=== PATIENT | male | born 1980 | race Hispanic/Latino ===

== ENCOUNTER 2018-04-14 10:29 | Inpatient (IN) | payer SELFPAY ==
[2018-04-14 13:04] LABS: Absolute Lymphocytes (CBC) 1.1 K/uL (0.7-4.9); Absolute Neutrophil 8.9 K/uL (1.8-8.0); Basophils % 0.4 % (0-1.3); Eosinophils % 0.7 % (0-4.4); Lymphocytes % 9.7 % (15.3-44.8); MPV 8.5 fL (7.6-11.3); Monocytes % 9.2 % (3.3-12.3); RBC Red Blood Cell Count 5.09 M/uL (4.33-5.43)
[2018-04-14 13:07] LABS: Protime INR 1.1
[2018-04-14] MEDS ORDERED: NA CHLORIDE 0.9% 1,000 ML ONE (13:09)
--- NOTE | 2018-04-14 13:11 | RAD REPORT ---
EXAM DESCRIPTION: US - Extremity Venous Uni Ltd - 04/14/2018 1:00 pm CLINICAL HISTORY: SWELLING Leg swelling and edema. COMPARISON: No comparisons FINDINGS: Right lower extremity venous system was interrogated with Doppler technique. Normal flow, compressibility and augmentation was noted. There is no DVT present. IMPRESSION: No evidence of right lower extremity deep venous thrombosis.
[2018-04-14 13:19] LABS: Albumin 3.8 g/dL (3.4-5.0); Bilirubin Direct 0.1 mg/dL (0-0.2); Bilirubin Total 0.4 mg/dL (0.2-1.0); Magnesium 2.3 mg/dL (1.8-2.4); Potassium 3.2 mmol/L (3.5-5.1); Protein, Total 8.8 g/dL (6.4-8.2)
--- NOTE | 2018-04-14 13:36 | RAD REPORT ---
EXAM DESCRIPTION: RAD - Knee Right 3 View - 04/14/2018 1:30 pm CLINICAL HISTORY: SWELLING COMPARISON: No comparisons FINDINGS: Mild edema is seen surrounding the right knee. No fracture or dislocation seen. No aggress tyra marrow pattern. Trace suprapatellar joint fluid is present.
--- NOTE | 2018-04-14 14:40 | ER ---
Nurse's Notes [facility] Name: Tito Coyne Age: 37 yrs Sex: Male : 1980 Arrival Date: 04/14/2018 Time: 10:31 Bed 13 Private MD: None, None Diagnosis: Cellulitis and acute lymphangitis of other parts of limb-Right leg Presentation: 04/14 10:48 Presenting complaint: Patient states: "I woke up the other morning and I had a little aj1 pimple on my knee. I pulled a hair out of it and squeezed the pus out and the next morning it looked worse, this was about 3 days ago." Redness and swelling noted to right knee. Transition of care: patient was not received from another setting of care. Onset of symptoms was April 11, 2018. Risk Assessment: Do you want to hurt yourself or someone else? Patient reports no desire to harm self or others. Initial Sepsis Screen: Does the patient meet any 2 criteria? HR > 90 bpm. No. Patient's initial sepsis screen is negative. Does the patient have a suspected source of infection? Yes: Skin breakdown/wound. Care prior to arrival: None. 10:48 Method Of Arrival: Ambulatory aj1 10:48 Acuity: NESS 3 aj1 Triage Assessment: 10:50 General: Appears in no apparent distress. uncomfortable, Behavior is calm, cooperative, aj1 appropriate for age. Pain: Complains of pain in right knee Pain currently is 7 out of 10 on a pain scale. Neuro: Level of Consciousness is awake, alert, obeys commands. Cardiovascular: Patient's skin is warm and dry. Respiratory: Airway is patent Respiratory effort is even, unlabored, Respiratory pattern is regular, symmetrical. Derm: Abscess located on right knee is with a large area of erythema surrounding abscess is hot to touch, is red, is raised. Historical: - Allergies: 10:50 Codeine; aj1 - Home Meds: 10:50 None [Active]; aj1 - PMHx: 10:50 None; aj1 - PSHx: 10:50 None; aj1 - Immunization history:: Flu vaccine is not up to date. - Social history:: Smoking status: Patient uses tobacco products, smokes one-half pack cigarettes per day. - Ebola Screening: : Patient denies travel to an Ebola-affected area in the 21 days before illness onset. Screenin:11 Abuse screen: Denies threats or abuse. Nutritional screening: No deficits noted. rb1 Tuberculosis screening: No symptoms or risk factors identified. Fall Risk None identified. Assessment: 12:11 General: Appears in no apparent distress. comfortable, Behavior is calm, cooperative, rb1 Reports chills for fever for 1-2 days. Pain: Complains of pain in right knee Pain currently is 7 out of 10 on a pain scale. Pain began 1 day ago. Neuro: Level of Consciousness is awake, alert, obeys commands, Oriented to person, place, time, situation. Cardiovascular: Capillary refill < 3 seconds is brisk in bilateral toes. Respiratory: Airway is patent Respiratory effort is even, unlabored, Respiratory pattern is regular, symmetrical. GI: No signs and/or symptoms were reported involving the gastrointestinal system. : No signs and/or symptoms were reported regarding the genitourinary system. Derm: Skin is red, Redness and swelling noted to right knee and lower leg. Musculoskeletal: Range of motion: intact in all extremities, Swelling present in right leg and right knee. 13:00 Reassessment: Patient appears in no apparent distress at this time. No changes from rb1 previously documented assessment. 14:00 Reassessment: Patient appears in no apparent distress at this time. Patient and/or rb1 family updated on plan of care and expected duration. Pain level reassessed. Patient is alert, oriented x 3, equal unlabored respirations, skin warm/dry/pink. 15:00 Reassessment: Patient appears in no apparent distress at this time. No changes from rb1 previously documented assessment. 16:00 Reassessment: Patient appears in no apparent distress at this time. Patient and/or rb1 family updated on plan of care and expected duration. Pain level reassessed. Patient is alert, oriented x 3, equal unlabored respirations, skin warm/dry/pink. 16:10 Reassessment: Gave report to STIVEN Valverde. Information from the SBAR was given. All rb1 questions asked and answered. Vital Signs: 10:50 BP 137 / 89; Pulse 98; Resp 18; Temp 98.2; Pulse Ox 100% on R/A; Weight 88.45 kg (R); aj1 Height 6 ft. 0 in. (182.88 cm) (R); Pain 7/10; 11:50 BP 153 / 93; Pulse 86; Resp 16; Pulse Ox 100% ; rb1 12:49 BP 151 / 95; Pulse 85; Resp 15; Pulse Ox 98% on R/A; Pain 5/10; rb1 13:49 BP 146 / 98; Pulse 86; Resp 18; Pulse Ox 99% on R/A; rb1 14:40 BP 148 / 89; Pulse 88; Resp 17; Pulse Ox 99% on R/A; rb1 15:35 BP 153 / 96; Pulse 84; Resp 16; Pulse Ox 100% on R/A; Pain 4/10; rb1 16:17 BP 153 / 96; Pulse 86; Resp 17; Pulse Ox 100% on R/A; rb1 10:50 Body Mass Index 26.45 (88.45 kg, 182.88 cm) aj1 ED Course: 10:31 Patient arrived in ED. sb2 10:32 None, None is Private Physician. sb2 10:50 Triage completed. aj1 10:50 Arm band placed on Patient placed in waiting room, Patient notified of wait time. aj1 12:08 Rashad Toledo PA is PHCP. cp 12:08 Joel Cruz MD is Attending Physician. cp 12:11 Patient has correct armband on for positive identification. Placed in gown. Bed in low rb1 position. Call light in reach. Side rails up X 1. Pulse ox on. NIBP on. 12:14 Neyda Saab, RN is Primary Nurse. rb1 12:45 Inserted saline lock: 22 gauge in right antecubital area, using aseptic technique. rb1 Blood collected. 13:00 US Extremity Venous Unilateral Ltd In Process Unspecified. EDMS 13:03 Patient moved back from ultrasound. crystal 13:30 XRAY Knee RIGHT 3 view In Process Unspecified. EDMS 14:38 Rosa Meredith MD is Hospitalizing Provider. cp 16:25 No provider procedures requiring assistance completed. Patient admitted, IV remains in rb1 place. Administered Medications: 13:20 Drug: NS 0.9% 1000 ml Route: IV; Rate: 1 bolus; Site: right antecubital; rb1 14:44 Follow up: IV Status: Completed infusion rb1 16:17 Drug: Zosyn 3.375 grams Route: IVPB; Infused Over: 60 mins; Site: right antecubital; rb1 16:25 Follow up: Response: No adverse reaction; IV Status: Infusion continued upon admission rb1 19:45 Not Given (Taken to the floor when admitted): vancoMYCIN 1 grams IVPB once over 2 hrs rb1 Outcome: 14:40 Decision to Hospitalize by Provider. cp 16:25 Admitted to Tele accompanied by tech, via wheelchair, room 423, with chart, Report rb1 called to STIVEN Valverde 16:25 Condition: stable 16:25 Instructed on the need for admit. 16:43 Patient left the ED. hb Signatures: Dispatcher [employer] EDAmada Guadalupe RN RN aj1 Rashad Toledo PA PA cp Neyda Saab RN RN rb1 Marquis Giraldo jd, Heather, RN RN Mimi Roche sb2
--- NOTE | 2018-04-14 14:40 | EDPHYS ---
Physician Documentation [facility] Name: Tito Coyne Age: 37 yrs Sex: Male : 1980 Arrival Date: 04/14/2018 Time: 10:31 Bed 13 Private MD: None, None ED Physician Joel Cruz HPI: 04/14 12:25 This 37 yrs old Male presents to ER via Ambulatory with complaints of Abscess. cp 12:25 The patient presents with an abscess of the right knee, the patient presents with a cp swollen area of the right leg. 12:25 Description: erythematous, swollen, tense. Onset: The symptoms/episode began/occurred 3 cp day(s) ago. Associated signs and symptoms: Pertinent positives: erythema, fever, swelling, Pertinent negatives: discharge, drainage, vomiting. Severity of symptoms: in the emergency department the symptoms are unchanged, despite home interventions. Historical: - Allergies: 10:50 Codeine; aj1 - Home Meds: 10:50 None [Active]; aj1 - PMHx: 10:50 None; aj1 - PSHx: 10:50 None; aj1 - Immunization history:: Flu vaccine is not up to date. - Social history:: Smoking status: Patient uses tobacco products, smokes one-half pack cigarettes per day. - Ebola Screening: : Patient denies travel to an Ebola-affected area in the 21 days before illness onset. ROS: 12:30 Constitutional: Negative for body aches, chills, fever, poor PO intake. cp 12:30 Eyes: Negative for injury, pain, redness, and discharge. cp 12:30 ENT: Negative for drainage from ear(s), ear pain, sore throat, difficulty swallowing, difficulty handling secretions. 12:30 Cardiovascular: Negative for chest pain, palpitations. 12:30 Respiratory: Negative for cough, shortness of breath, wheezing. 12:30 Abdomen/GI: Negative for abdominal pain, nausea, vomiting, and diarrhea, constipation, black/tarry stool, rectal bleeding. 12:30 Back: Negative for pain at rest, pain with movement. 12:30 : Negative for urinary symptoms. 12:30 Skin: Positive for abscess, cellulitis, of the right leg and right knee, Negative for rash. 12:30 Neuro: Negative for altered mental status, headache, syncope, near syncope, weakness. 12:30 All other systems are negative. Exam: 12:35 Constitutional: The patient appears in no acute distress, alert, awake, cp non-diaphoretic, non-toxic, well developed, well nourished. 12:35 Head/Face: Normocephalic, atraumatic. cp 12:35 Eyes: Periorbital structures: appear normal, Pupils: equal, round, and reactive to cp light and accomodation, Extraocular movements: intact throughout, Conjunctiva: normal, no exudate, no injection, Sclera: no appreciated abnormality, Lids and lashes: appear normal, bilaterally. 12:35 ENT: External ear(s): are unremarkable, Ear canal(s): are normal, clear, TM's: are normal, Nose: is normal, Mouth: Lips: moist, Oral mucosa: pink and intact, moist, Posterior pharynx: is normal, airway is patent, no erythema, no exudate, Voice: is normal. 12:35 Neck: ROM/movement: is normal, is supple, without pain, no range of motions limitations, no meningismus, no nuchal rigidity. 12:35 Chest/axilla: Inspection: normal, Palpation: is normal, no crepitus, no tenderness. 12:35 Cardiovascular: Rate: normal, Rhythm: regular. 12:35 Respiratory: the patient does not display signs of respiratory distress, Respirations: cp normal, no use of accessory muscles, no retractions, no splinting, no tachypnea, labored breathing, is not present, Breath sounds: are clear throughout, no decreased breath sounds, no stridor, no wheezing. 12:35 Abdomen/GI: Inspection: abdomen appears normal, Bowel sounds: active, all quadrants, Palpation: abdomen is soft and non-tender, in all quadrants, rebound tenderness, is not appreciated, voluntary guarding, is not appreciated, involuntary guarding, is not appreciated. 12:35 Back: pain, is absent, ROM is normal. 12:35 Skin: abscess, that is small, of the right knee, cellulitis, that is moderate, irregular, on the right leg. 12:35 Neuro: Orientation: to person, place \T\ time. Mentation: is normal, Cerebellar function: is grossly normal, Motor: moves all fours, strength is normal, Sensation: is normal. Vital Signs: 10:50 BP 137 / 89; Pulse 98; Resp 18; Temp 98.2; Pulse Ox 100% on R/A; Weight 88.45 kg (R); aj1 Height 6 ft. 0 in. (182.88 cm) (R); Pain 7/10; 11:50 BP 153 / 93; Pulse 86; Resp 16; Pulse Ox 100% ; rb1 12:49 BP 151 / 95; Pulse 85; Resp 15; Pulse Ox 98% on R/A; Pain 5/10; rb1 13:49 BP 146 / 98; Pulse 86; Resp 18; Pulse Ox 99% on R/A; rb1 14:40 BP 148 / 89; Pulse 88; Resp 17; Pulse Ox 99% on R/A; rb1 15:35 BP 153 / 96; Pulse 84; Resp 16; Pulse Ox 100% on R/A; Pain 4/10; rb1 16:17 BP 153 / 96; Pulse 86; Resp 17; Pulse Ox 100% on R/A; rb1 10:50 Body Mass Index 26.45 (88.45 kg, 182.88 cm) aj1 MDM: 12:08 Patient medically screened. cp 12:40 Differential diagnosis: abscess, cellulitis, insect bite, DVT, septic joint, bursitis. cp 14:05 Data reviewed: vital signs, nurses notes, lab test result(s), radiologic studies, cp ultrasound, and as a result, I will admit patient. 14:05 Counseling: I had a detailed discussion with the patient and/or guardian regarding: the cp historical points, exam findings, and any diagnostic results supporting the discharge/admit diagnosis, lab results, radiology results, the need for further work-up and treatment in the hospital. 14:06 Physician consultation: Rosa Meredith MD was called at 14:07, left message on [email or web address].cp 04/14 12:28 Order name: Blood Culture Adult (2) cp 04/14 12:28 Order name: Procalcitonin; Complete Time: 13:59 cp 04/14 12:28 Order name: Lactate; Complete Time: 13:59 cp 04/14 12:28 Order name: CBC with Diff; Complete Time: 13:59 cp 04/14 14:38 Interpretation: Normal except: WBC 11.2; MCV 86.5; GINA% 80.0; LYM% 9.7; NEUT A 8.9. cp 04/14 12:28 Order name: BMP; Complete Time: 13:59 cp 04/14 14:00 Interpretation: Normal except: NA 135; K 3.2; GLUC 70; BUN 5; GFR 83. cp 04/14 12:28 Order name: PT-INR; Complete Time: 13:59 cp 04/14 12:28 Order name: XRAY Knee RIGHT 3 view; Complete Time: 13:59 cp 04/14 12:28 Order name: US Extremity Venous Unilateral Ltd; Complete Time: 13:59 cp 04/14 14:01 Interpretation: Report reviewed. cp 04/14 12:28 Order name: Ptt, Activated; Complete Time: 13:59 cp 04/14 12:28 Order name: LFT's; Complete Time: 13:59 cp 04/14 12:28 Order name: Magnesium; Complete Time: 13:59 cp 04/14 12:28 Order name: Wound Culture cp Administered Medications: 13:20 Drug: NS 0.9% 1000 ml Route: IV; Rate: 1 bolus; Site: right antecubital; rb1 14:44 Follow up: IV Status: Completed infusion rb1 16:17 Drug: Zosyn 3.375 grams Route: IVPB; Infused Over: 60 mins; Site: right antecubital; rb1 16:25 Follow up: Response: No adverse reaction; IV Status: Infusion continued upon admission rb1 19:45 Not Given (Taken to the floor when admitted): vancoMYCIN 1 grams IVPB once over 2 hrs rb1 Disposition: 04/14/18 14:40 Hospitalization ordered by Rosa Meredith for Inpatient Admission. Preliminary diagnosis is Cellulitis and acute lymphangitis of other parts of limb - Right leg. - Bed requested for Telemetry/MedSurg (Inpatient). - Status is Inpatient Admission. hb - Condition is Stable. - Problem is new. - Symptoms are unchanged. UTI on Admission? No Addendum: 04/25/2018 07:29 Co-signature as Attending Physician, Joel Cruz MD I agree with the assessment and k dr plan of care. Signatures: Dispatcher [employer] EDMS Amada Monroy RN RN aj1 Darcy Dao RN RN dw Joel Cruz MD MD kdr Page, Corey, PA PA cp Neyda Saab RN RN rb1 Michelle Jackson RN RN hb Corrections: (The following items were deleted from the chart) 04/14 15:06 14:40 Hospitalization Ordered by Rosa Meredith MD for Inpatient Admission. Preliminary dw diagnosis is Cellulitis and acute lymphangitis of other parts of limb - Right leg. Bed requested for Telemetry/MedSurg (Inpatient). Status is Inpatient Admission. Condition is Stable. Problem is new. Symptoms are unchanged. UTI on Admission? No. cp 16:43 15:06 04/14/2018 14:40 Hospitalization Ordered by Rosa Meredith MD for Inpatient hb Admission. Preliminary diagnosis is Cellulitis and acute lymphangitis of other parts of limb - Right leg. Bed requested for Telemetry/MedSurg (Inpatient). Status is Inpatient Admission. Condition is Stable. Problem is new. Symptoms are unchanged. UTI on Admission? No. dw
[2018-04-14] MEDS ORDERED: PIPER/TAZO/NS 3.375gm 3.375 GM/100 ML BAG IV ONE (15:15)
[2018-04-14] MEDS ORDERED: VANCOMYCIN 1.5 GM in NA CHLORIDE 0.9% 500 ML IVPB ONE (16:00)
[2018-04-14] MEDS ORDERED: PIPER/TAZO/NS 3.375gm 3.375 GM/100 ML BAG ONE (16:13)
[2018-04-14] MEDS: NA CHLORIDE 0.9% 1,000 ML IV SCH (17:28)
[2018-04-14] MEDS ORDERED: ACETAMINOPHEN 500 MG TAB PO PRN (17:28)
[2018-04-14] MEDS ORDERED: ONDANSETRON 4 MG/2 ML VIAL IV PRN (17:28)
[2018-04-14] MEDS ORDERED: POTASSIUM CL SA 10 MEQ TAB PO ONE (17:29)
[2018-04-14 17:53] VITALS: BMI 26.3
--- NOTE | 2018-04-14 18:17 | P.HP ---
Certification for Inpatient Patient admitted to: Inpatient With expected LOS: >2 Midnights Patient will require the following post-hospital care: None Practitioner: I am a practitioner with admitting privileges, knowledge of patient current condition, hospital course, and medical plan of care. Services: Services provided to patient in accordance with Admission requirements found in Title 42 Section 412.3 of the Code of Federal Regulations Patient History Date of Service: 04/14/18 Primary Care Provider: None Reason for admission: Right Knee Cellulitis possible Abscess History of Present Illness: 37 y/o M who recently was realized from snf on mar 25 2018 presenting to the ED with Knee swelling and Right Lower Leg Cellulitis. Pt noted that this started about 3 days ago as a boil and now has got progressively worse. Pt states he also noted similar episode on the elbow that started today. Pt states he has had similar episode in the armpit region in the past but did not get anything done. Denies any trauma to the area. Positive for subjective fever, Chills and pain. Able to Ambulate and put weight on the affected extremity. + for cig smoking and THC. Occasional Alcohol and negative for IV drugs. In the ER pt was found to have RLE cellulitis and Right knee Swelling with Possible Abscess vs septic arthritis. Pt was thus admitted to the hospital for further workup and IV abx given the extent of cellulites and High risk for Septic Arthritis. Allergies Codeine Allergy (Uncoded 04/11/15 16:18) Unknown Home Medications: NK [No Home Meds] 04/14/18 - Past Medical/Surgical History Has patient received pneumonia vaccine in the past: No Diabetic: No -: Recurrent boils Past Surgical History: Reviewed- Non-Contributory - Family History Family History: Reviewed- Non-Contributory - Social History Smoking Status: Current some day smoker Counseled patient to stop smoking for: more than 10 minutes Smoking therapy provided: Yes Alcohol use: Yes CD- Drugs: Yes Caffeine use: No Place of Residence: Home Review of Systems 10-point ROS is otherwise unremarkable Physical Examination - Vital Signs Temperature: 98.2 F Blood Pressure: 153/96 Pulse: 86 Respirations: 17 - Physical Exam General: Alert, In no apparent distress HEENT: Atraumatic, PERRLA, Mucous membr. moist/pink, EOMI, Sclerae nonicteric Neck: Supple, 2+ carotid pulse no bruit, No LAD, Without JVD or thyroid abnormality Respiratory: Clear to auscultation bilaterally, Normal air movement Cardiovascular: Regular rate/rhythm, Normal S1 S2 Gastrointestinal: Normal bowel sounds, No tenderness Musculoskeletal: Erythema, Tenderness, Warmth, Other (Extensive right Lower Ext Swelling noted on the back. Right Knee Swelling with Boil at the 10'o clock location. No Purulent Discharge. Tenderness + and Swelling noted. FROM on the Right leg noted. ) Integumentary: Tenderness/swelling, Erythema, Warmth Neurological: Normal gait, Normal speech, Normal strength at 5/5 x4 extr, Normal tone, Normal affect Lymphatics: No axilla or inguinal lymphadenopathy - Studies Laboratory Data (last 24 hrs) 04/14/18 12:45: PT 13.0 H, INR 1.10, APTT 33.3 04/14/18 12:45: Sodium 135 L, Potassium 3.2 L, BUN 5 L, Creatinine 1.00, Glucose 70 L, Magnesium 2.3, Total Bilirubin 0.4, AST 13 L, ALT 25, Alkaline Phosphatase 114 04/14/18 12:45: WBC 11.2 H, Hgb 15.1, Hct 44.0, Plt Count 311 Assessment and Plan - Problems (Diagnosis) (1) Cellulitis of right knee Current Visit: Yes Status: Acute Plan: Right Knee cellulitis with possible boil vs Abscess vs septic Joint -Pt with H/o Boils in the past -IV Vanc and zosyn -Wound culture and Blood Culture -Xray with effusion in suprapatellar region -ortho Consulted. Reccs awaiting -MRI pending, CRP pending. -Denies Trauma (2) Cellulitis of right leg Current Visit: Yes Status: Acute Plan: See # 1 (3) Tobacco abuse Current Visit: Yes Status: Chronic (4) Marijuana use Current Visit: Yes Status: Chronic Discharge Plan: Other Plan to discharge in: Greater than 2 days - Advance Directives Does patient have a Living Will: No Does patient have a Durable POA for Healthcare: No - Code Status/Comfort Care Code Status Assessed: Yes Critical Care: No
--- NOTE | 2018-04-14 19:31 | RAD REPORT ---
EXAM DESCRIPTION: Sindhu Rocha Cont04/14/2018 7:19 pm CLINICAL HISTORY: Right knee pain and swelling COMPARISON: April 14, 2018 x-ray TECHNIQUE: Axial, sagittal and coronal magnetic resonance imaging of the right knee was obtained. FINDINGS: A 37 millimeter fluid collection is present within the subcutaneous tissues lateral to pat xu. A medial/lateral meniscal tear is not seen The ACL and PCL are intact. The medial and the lateral collateral ligaments appear normal. The visualized patellar and quadriceps tendons are unremarkable. The patellar facet cartilage appears normal. The patellar retinacula are intact. IMPRESSION: 37 millimeter fluid collection within the subcutaneous tissues of the anterolateral righ t knee suspicious for an abscess
--- NOTE | 2018-04-14 19:32 | RAD REPORT ---
EXAM DESCRIPTION: RAD - Elbow Right 2 View - 04/14/2018 7:20 pm CLINICAL HISTORY: elbow pain FINDINGS: No fracture or dislocation is seen. No bone or joint abnormality is displayed is
[2018-04-15] MEDS: PIPER/TAZO/NS 3.375gm 3.375 GM/100 ML BAG IV SCH ×3 (01:06→18:14)
[2018-04-15] MEDS ORDERED: POTASSIUM CL SA 10 MEQ TAB PO ONE ×2 (01:46→09:00)
[2018-04-15] MEDS: NA CHLORIDE 0.9% 1,000 ML IV SCH ×3 (03:28→20:49)
[2018-04-15 06:07] LABS: Absolute Monocytes 1.1 K/uL (0.1-1.3); Basophils % 0.8 % (0-1.3); Lymphocytes % 11.1 % (15.3-44.8); MPV 8.4 fL (7.6-11.3); Monocytes % 11.9 % (3.3-12.3); RBC Red Blood Cell Count 4.44 M/uL (4.33-5.43)
[2018-04-15 06:41] LABS: ALT/SGPT 23 U/L (12-78); AST/SGOT 15 U/L (15-37); Alkaline Phosphatase 88 U/L (45-117); BUN Blood Urea Nitrogen 5 mg/dL (7-18); Bicarbonate 25 mmol/L (21-32); Bilirubin Total 0.5 mg/dL (0.2-1.0); Glucose Level 83 mg/dL (74-106); Phosphorus 3.2 mg/dL (2.5-4.9); Potassium 3.7 mmol/L (3.5-5.1); Sodium Level 138 mmol/L (136-145)
[2018-04-15] MEDS: VANCOMYCIN 1.5 GM in NA CHLORIDE 0.9% 500 ML IVPB SCH ×2 (09:38→20:48)
[2018-04-15] MEDS ORDERED: LIDOCAINE 2% MPF 5 ML VIAL ONE (12:57)
[2018-04-15] MEDS ORDERED: PROPOFOL 200 MG/20 ML VIAL IV ONE (12:57)
[2018-04-15] MEDS ORDERED: FENTANYL CITR 100 MCG/2 ML ONE (12:57)
[2018-04-15] MEDS ORDERED: MIDAZOLAM HCL 2 MG/2 ML INJ ONE (12:57)
--- NOTE | 2018-04-15 13:24 | P.BOP ---
Preoperative diagnosis: right knee abscess Postoperative diagnosis: same Primary procedure: Incision and drainage of complex right knee abscess [id number] Estimated blood loss: <10cc Specimen: pus Findings: abscess with devitalized tissue Anesthesia: General Complications: None Drain(s): Other (wet to dry) Transferred to: Recovery Room Condition: Good
[2018-04-15] MEDS ORDERED: KETOROLAC 30 MG/ML INJ ONE (13:30)
[2018-04-15] MEDS ORDERED: MORPHINE 4 MG/ML SYR ONE (14:01)
[2018-04-15] MEDS ORDERED: HYDROCODONE/APAP 7.5/325 MG TAB PO PRN (14:09)
[2018-04-15] MEDS ORDERED: NA CHLORIDE 0.9% 1,000 ML ONE (14:15)
--- NOTE | 2018-04-15 16:40 | P.PN ---
Subjective Date of Service: 04/15/18 Primary Care Provider: None Chief Complaint: Right Knee Cellulitis possible Abscess Patient seen and examined at bedside with RN. Chart reviewed. Case discussed with general surgery. Currently patient is NPO. Will go to OR today for knee abscess drainage. Review of Systems 10-point ROS is otherwise unremarkable Physical Examination - Vital Signs Temperature: 98.5 F Blood Pressure: 122/75 Pulse: 75 Respirations: 16 Pulse Ox (%): 99 - Physical Exam General: Alert, In no apparent distress HEENT: Atraumatic, PERRLA, EOMI Neck: Supple, JVD not distended Respiratory: Clear to auscultation bilaterally, Normal air movement Cardiovascular: Regular rate/rhythm, Normal S1 S2 Gastrointestinal: Normal bowel sounds, No tenderness Musculoskeletal: Erythema, Tenderness, Warmth Integumentary: No rashes Neurological: Normal speech, Normal tone, Normal affect Lymphatics: No axilla or inguinal lymphadenopathy - Studies Medications List Reviewed: Yes Assessment And Plan - Current Problems (Diagnosis) (1) Cellulitis of right knee Onset Date: 04/15/18 Current Visit: Yes Status: Acute Plan: Right Knee cellulitis with possible boil vs Abscess vs septic Joint -Pt with H/o Boils in the past -IV Vanc and zosyn -Wound culture and Blood Culture pending -Xray with effusion in suprapatellar region -MRI with Knee abscess -General Surgery Consulted. -Plans for I&D (2) Cellulitis of right leg Onset Date: 04/15/18 Current Visit: Yes Status: Acute Plan: See # 1 (3) Tobacco abuse Onset Date: 04/15/18 Current Visit: Yes Status: Chronic (4) Marijuana use Onset Date: 04/15/18 Current Visit: Yes Status: Chronic Discharge Plan: Home Plan to discharge in: 48 Hours - Code Status/Comfort Care Code Status Assessed: Yes Critical Care: No
--- NOTE | 2018-04-15 17:34 | CON ---
Date of Consultation: 04/15/2018 Reason For Service: Right knee abscess. History Of Present Illness: This is a case of a 37-year-old male, admitted to the hospital for right knee and leg cellulitis. He does not remember exactly what happened. He stated it was getting wors e, and he decided to come to the ER, where he was admitted by the hospitalist. He denies any trauma, any recent traveling out of the country. The patient was admitted to the hospital and Orthopedics a nd General Surgery consulted. Since they ruled out any joint abscess, then they call me to take care of the cellulitis around the area and the abscess outside the joint. Review of Systems: Ten points otherwise unremarkable. Medical History: None. Allergies: CODEINE. Social History: He does not smoke. He drinks 6 beers in a week. Family History: Noncontributory. Physical Examination: General: The patient is awake and alert. HEENT: Pupils are equal and reactive, anicteric. Neck: Supple. Chest: Clear. Abdomen: Soft and depressible. No guarding or rebound. Rectal/Pelvic: Deferred. Extremities: Over the right knee and leg area, patient has area of cellulitis about 20 x 15 cm with an area of abscess about 10 x 10 cm. Fluctuance is present. Good peripheral pulses dorsalis pedis, posterior tibialis, and popliteal bilaterally. Neurologic: Cranial nerves 2 through 12 grossly within normal limits. Diagnostic Data: Knee MRI interpreted by Dr. Becerra as a fluid collection in the subcutaneous tissu e of the anterolateral right knee suspicious for abscess. Venous Doppler shows no evidence of DVT. Assessment: This is a 37-year-old patient with right knee abscess. Benefits, alternatives, and risk s of debridement and incision and drainage fully explained to the patient, which included but are not limited to infection, bleeding, damage to adjacent structures, anesthesia complication, UT, and even . He also understands this may not relieve his symptoms. He might need more than one surgical intervention. He will require wound care. JANE/RADHA Voice ID: [id number] Report ID: [id number]
[2018-04-16] MEDS: PIPER/TAZO/NS 3.375gm 3.375 GM/100 ML BAG IV SCH ×3 (00:07→18:25)
--- NOTE | 2018-04-16 00:31 | OP ---
Date of Procedure: 04/15/2018 Surgeon: Abram Kumar MD Preoperative Diagnosis: Right knee abscess. Postoperative Diagnosis: Right knee abscess. Procedure: Incision and drainage of complex right knee abscess, about 10 x 7 x 1 cm. Anesthesia: General plus local. Packing: Wet-to-dry normal saline. Indications: This is the case of a 37-year-old patient who comes to us with a right knee cellulitis and abscess and devitalized tissue. I recommended incision and drainage with debridement of the righ t knee abscess with benefits, alternatives, and risks including but not limited to infection, bleedin g, damage to adjacent structures, anesthesia complication, nonhealing of the wound, VA, and even deat h. He also understands this may not relieve any symptoms and he might need more than one surgical in tervention. He understood, signed a consent. Description Of Procedure: The patient was brought to the operating room, placed in supine position. Anesthesia was done without any complication. Right knee was prepped and draped in a sterile fashio n. Marcaine 0.5% was injected for local anesthetic, followed by sharp incision of the skin, and we n oticed a purulent discharge cavity when we opened it and removed the devitalized tissue. This is abo ut 10 x 7 x 1 cm. All the devitalized tissue was removed. Loculations were explored and opened. Ir rigation was done. Culture was done. Hemostasis obtained. Local anesthetic was applied and area wa s packed with wet-to-dry dressing. The patient tolerated the procedure well. The patient was sent to recover y in stable condition. JANE/RADHA Voice ID: [id number] Report ID: [id number]
[2018-04-16 05:16] LABS: Absolute Lymphocytes (CBC) 1.6 K/uL (0.7-4.9); Absolute Monocytes 0.8 K/uL (0.1-1.3); Absolute Neutrophil 4.5 K/uL (1.8-8.0); Basophils % 1.2 % (0-1.3); Eosinophils % 3.2 % (0-4.4); Hematocrit 37.8 % (39.6-49.0); Lymphocytes % 21.9 % (15.3-44.8); MPV 8.2 fL (7.6-11.3); Monocytes % 10.9 % (3.3-12.3); RBC Red Blood Cell Count 4.38 M/uL (4.33-5.43)
[2018-04-16 05:35] LABS: Albumin 2.7 g/dL (3.4-5.0); Bilirubin Total 0.4 mg/dL (0.2-1.0); Potassium 3.8 mmol/L (3.5-5.1); Protein, Total 6.6 g/dL (6.4-8.2)
[2018-04-16] MEDS ORDERED: POTASSIUM 25 MEQ EFFERV TAB PO ONE ×2 (08:00→15:00)
[2018-04-16] MEDS: VANCOMYCIN 1.5 GM in NA CHLORIDE 0.9% 500 ML IVPB SCH (09:18)
[2018-04-16] MEDS: NA CHLORIDE 0.9% 1,000 ML IV SCH ×2 (09:19→19:28)
--- NOTE | 2018-04-16 10:31 | P.PN ---
Subjective Date of Service: 04/16/18 Primary Care Provider: None Chief Complaint: Right Knee Cellulitis possible Abscess Patient seen and examined at bedside with RN. Chart reviewed. Case discussed with general surgery. S/P I&D POD# 1 at this time. Doing well. Review of Systems 10-point ROS is otherwise unremarkable Physical Examination - Vital Signs Temperature: 98.1 F Blood Pressure: 129/76 Pulse: 84 Respirations: 18 Pulse Ox (%): 97 - Physical Exam General: Alert, In no apparent distress HEENT: Atraumatic, PERRLA, EOMI Neck: Supple, JVD not distended Respiratory: Clear to auscultation bilaterally, Normal air movement Cardiovascular: Regular rate/rhythm, Normal S1 S2 Gastrointestinal: Normal bowel sounds, No tenderness Musculoskeletal: Erythema, Tenderness, Warmth Integumentary: Tenderness/swelling, Erythema, Other (KNee abscess Drained. Dressing in place. ) Neurological: Normal speech, Normal tone, Normal affect Lymphatics: No axilla or inguinal lymphadenopathy - Studies Microbiology Data (last 24 hrs): 04/14/18 16:10 Wound - Right Knee Gram Stain - Final Medications List Reviewed: Yes Assessment And Plan - Current Problems (Diagnosis) (1) Cellulitis of right knee Onset Date: 04/15/18 Current Visit: Yes Status: Acute Plan: Right Knee cellulitis with possible boil vs Abscess vs septic Joint -Pt with H/o Boils in the past -IV Vanc and zosyn -Wound culture and Blood Culture pending -S/P I&D POD # 1 for Knee Abscess (2) Cellulitis of right leg Onset Date: 04/15/18 Current Visit: Yes Status: Acute Plan: See # 1 (3) Tobacco abuse Onset Date: 04/15/18 Current Visit: Yes Status: Chronic (4) Marijuana use Onset Date: 04/15/18 Current Visit: Yes Status: Chronic Discharge Plan: Home Plan to discharge in: 48 Hours - Code Status/Comfort Care Code Status Assessed: Yes Critical Care: No
[2018-04-16] MEDS: VANCOMYCIN 1.75 GM in NA CHLORIDE 0.9% 500 ML IVPB SCH (22:08)
[2018-04-17] MEDS: PIPER/TAZO/NS 3.375gm 3.375 GM/100 ML BAG IV SCH ×3 (03:19→17:38)
[2018-04-17] MEDS: NA CHLORIDE 0.9% 1,000 ML IV SCH ×2 (05:28→17:38)
[2018-04-17 05:30] LABS: Absolute Lymphocytes (CBC) 1.5 K/uL (0.7-4.9); Absolute Monocytes 0.5 K/uL (0.1-1.3); Absolute Neutrophil 2.9 K/uL (1.8-8.0); Basophils % 0.2 % (0-1.3); Eosinophils % 4.9 % (0-4.4); Hematocrit 37.1 % (39.6-49.0); Lymphocytes % 28.3 % (15.3-44.8); MPV 7.6 fL (7.6-11.3); Monocytes % 10.2 % (3.3-12.3); RBC Red Blood Cell Count 4.34 M/uL (4.33-5.43)
[2018-04-17 05:49] LABS: ALT/SGPT 57 U/L (12-78); AST/SGOT 40 U/L (15-37); Albumin 2.6 g/dL (3.4-5.0); Alkaline Phosphatase 79 U/L (45-117); BUN Blood Urea Nitrogen 8 mg/dL (7-18); Bicarbonate 27 mmol/L (21-32); Bilirubin Total 0.2 mg/dL (0.2-1.0); Glucose Level 86 mg/dL (74-106); Potassium 3.7 mmol/L (3.5-5.1); Protein, Total 6.7 g/dL (6.4-8.2); Sodium Level 140 mmol/L (136-145)
[2018-04-17] MEDS ORDERED: POTASSIUM 25 MEQ EFFERV TAB PO ONE (09:00)
[2018-04-17] MEDS: VANCOMYCIN 1.75 GM in NA CHLORIDE 0.9% 500 ML IVPB SCH ×2 (11:16→21:49)
--- NOTE | 2018-04-17 11:49 | RAD REPORT ---
EXAM DESCRIPTION: RAD - Chest Single View - 04/17/2018 11:00 am CLINICAL HISTORY: PICC line placement COMPARISON: CHEST SINGLE VIEW dated 02/06/2015 FINDINGS: Portable chest was obtained following placement of a right upper extremity PICC line. The catheter tip projects over the SVC..
[2018-04-17] MEDS ORDERED: TRAMADOL HCL 50 MG TAB PO PRN (14:13)
--- NOTE | 2018-04-17 14:16 | P.PN ---
Subjective Date of Service: 04/17/18 Primary Care Provider: None Chief Complaint: Right Knee Cellulitis possible Abscess Patient seen and examined at bedside with RN. Chart reviewed. Case discussed with general surgery. S/P I&D POD# 3 at this time. Doing well. Review of Systems 10-point ROS is otherwise unremarkable Physical Examination - Vital Signs Temperature: 98.2 F Blood Pressure: 124/78 Pulse: 67 Respirations: 18 Pulse Ox (%): 97 - Physical Exam General: Alert, In no apparent distress HEENT: Atraumatic, PERRLA, EOMI Neck: Supple, JVD not distended Respiratory: Clear to auscultation bilaterally, Normal air movement Cardiovascular: Regular rate/rhythm, Normal S1 S2 Gastrointestinal: Normal bowel sounds, No tenderness Musculoskeletal: Erythema, Tenderness, Warmth Integumentary: No rashes Neurological: Normal speech, Normal tone, Normal affect Lymphatics: No axilla or inguinal lymphadenopathy - Studies Microbiology Data (last 24 hrs): 04/15/18 13:13 Wound - Right Knee Gram Stain - Final 04/15/18 13:13 Wound - Right Knee Gram Stain - Final 04/15/18 13:13 Wound - Right Knee Culture & Sensitivity - Final Meth Resistant Staph Aureus 04/14/18 16:10 Wound - Right Knee Gram Stain - Final 04/14/18 16:10 Wound - Right Knee Culture & Sensitivity - Final Meth Resistant Staph Aureus Medications List Reviewed: Yes Assessment And Plan - Current Problems (Diagnosis) (1) Cellulitis of right knee Onset Date: 04/15/18 Current Visit: Yes Status: Acute Plan: Right Knee cellulitis with possible boil vs Abscess vs septic Joint -Pt with H/o Boils in the past -IV Vanc now -Wound culture + for MRSA -S/P I&D POD # 3 for Knee Abscess (2) Cellulitis of right leg Onset Date: 04/15/18 Current Visit: Yes Status: Acute Plan: See # 1 (3) Tobacco abuse Onset Date: 04/15/18 Current Visit: Yes Status: Chronic (4) Marijuana use Onset Date: 04/15/18 Current Visit: Yes Status: Chronic - Plan The patient will need long-term IV antibiotics. Culture positive for MRSA. Arrange for a PICC line today and IV antibiotics at home versus placement. Discharge Plan: Other Plan to discharge in: 72 Hours - Code Status/Comfort Care Code Status Assessed: Yes Critical Care: No
[2018-04-18] MEDS: PIPER/TAZO/NS 3.375gm 3.375 GM/100 ML BAG IV SCH ×2 (00:30→08:28)
[2018-04-18] MEDS: NA CHLORIDE 0.9% 1,000 ML IV SCH ×3 (01:28→21:16)
[2018-04-18 04:11] LABS: BUN Blood Urea Nitrogen 9 mg/dL (7-18); Bicarbonate 27 mmol/L (21-32); Glucose Level 89 mg/dL (74-106); Potassium 3.3 mmol/L (3.5-5.1); Sodium Level 140 mmol/L (136-145)
[2018-04-18] MEDS ORDERED: POTASSIUM CL SA 10 MEQ TAB PO ONE (05:29)
[2018-04-18 06:03] LABS: Magnesium 1.9 mg/dL (1.8-2.4); Phosphorus 4.1 mg/dL (2.5-4.9)
[2018-04-18] MEDS: VANCOMYCIN 1.75 GM in NA CHLORIDE 0.9% 500 ML IVPB SCH (09:03)
--- NOTE | 2018-04-18 11:56 | P.PN ---
Subjective Date of Service: 04/18/18 Primary Care Provider: None Chief Complaint: Right Knee Cellulitis possible Abscess Patient seen and examined at bedside with RN. Chart reviewed. Case discussed with general surgery. S/P I&D POD# 4 at this time. Doing well. Review of Systems 10-point ROS is otherwise unremarkable Physical Examination - Vital Signs Temperature: 98.6 F Blood Pressure: 138/86 Pulse: 71 Respirations: 16 Pulse Ox (%): 96 - Physical Exam General: Alert, In no apparent distress HEENT: Atraumatic, PERRLA, EOMI Neck: Supple, JVD not distended Respiratory: Clear to auscultation bilaterally, Normal air movement Cardiovascular: Regular rate/rhythm, Normal S1 S2 Gastrointestinal: Normal bowel sounds, No tenderness Musculoskeletal: Erythema, Tenderness, Warmth Integumentary: No rashes Neurological: Normal speech, Normal tone, Normal affect Lymphatics: No axilla or inguinal lymphadenopathy - Studies Microbiology Data (last 24 hrs): 04/15/18 13:13 Wound - Right Knee Gram Stain - Final 04/15/18 13:13 Wound - Right Knee Gram Stain - Final 04/15/18 13:13 Wound - Right Knee Culture & Sensitivity - Final Meth Resistant Staph Aureus 04/14/18 16:10 Wound - Right Knee Gram Stain - Final 04/14/18 16:10 Wound - Right Knee Culture & Sensitivity - Final Meth Resistant Staph Aureus Medications List Reviewed: Yes Assessment And Plan - Current Problems (Diagnosis) (1) Cellulitis of right knee Onset Date: 04/15/18 Current Visit: Yes Status: Acute Plan: Right Knee cellulitis with possible boil vs Abscess vs septic Joint -Pt with H/o Boils in the past -IV Vanc for 2 weeks -Wound culture + for MRSA -S/P I&D POD # 4 for Knee Abscess (2) Cellulitis of right leg Onset Date: 04/15/18 Current Visit: Yes Status: Acute Plan: See # 1 (3) Tobacco abuse Onset Date: 04/15/18 Current Visit: Yes Status: Chronic (4) Marijuana use Onset Date: 04/15/18 Current Visit: Yes Status: Chronic - Plan The patient will need long-term IV antibiotics. Culture positive for MRSA. Picc Line Placed and IV antibiotics outpt. Total [address] Early Consulted. Discharge Plan: Home Plan to discharge in: 48 Hours - Code Status/Comfort Care Code Status Assessed: Yes Critical Care: No
[2018-04-18 15:46] LABS: HIV 1/2 Antibody Diff Not indicated.; HIV AG/AB 4TH GEN Non-reactive (Non-reactive)
[2018-04-18] MEDS ORDERED: VANCOMYCIN 1.75 GM in NA CHLORIDE 0.9% 500 ML IVPB ONE (21:00)
[2018-04-19] MEDS: NA CHLORIDE 0.9% 1,000 ML IV SCH ×2 (01:34→09:17)
[2018-04-19 05:28] VITALS: O2SAT 98
[2018-04-19] MEDS ORDERED: VANCOMYCIN 2.75 GM in NA CHLORIDE 0.9% 500 ML IVPB SCH (09:00)
--- NOTE | 2018-04-19 09:59 | P.CNS ---
Date of Consult: 04/19/18 Patient is an unfortunate gentleman with a abcess on his right leg. MRI was negative for septic joint. He had I&D with Dr. Kumar. The patient had MRSA grown from his wound culture. He has sensitivity to vancomycin and doxycycline. The patient is stable. has a picc line. Plans for him to come to the ER for IV therapy. Till he can establish with the out patient surgery center. He also has a history of marijuana abuse. States he uses this to combat his anxiety. Social history PMtobacco and marijuana abuse Allergies codeine SIGN PAINTER AAO x 3 Heent Perrla, eom positive, no cervical LAD CVS s1,s2, RRR RS LCTA A/p 1. Skin abcess. Will continue vancomycin. Will add doxycyline po. Which is cheap and covers the MRSA. he may have some barriers to being compliant with his antibiotics. Hopefully he can complete the course of vancomycin. However adding the doxycyline may add some synergy. As well as be an alternative in case the patient has barriers to compliance 2. Marijuana abuse. Suggested use of CBT oil which is legal, has some good evidence for anxiolytics. He can get some from the local [employer] store on [address]. May help wean him off ilicit drugs 3. tobacco abuse. Have not addressed this in favor of discussing the marijuana. Will tackle one addiction at a time
[2018-04-19] MEDS ORDERED: SODIUM CHLORIDE 0.9% 10ML INJ IV SCH (10:00)
[2018-04-19] MEDS ORDERED: POTASSIUM CL SA 10 MEQ TAB PO ONE (10:46)
[2018-04-19] MEDS ORDERED: POTASSIUM 25 MEQ EFFERV TAB PO ONE (11:00)
[2018-04-19 12:35] VITALS: BP 128/82; TEMP 98
--- NOTE | 2018-04-19 14:22 | P.DS ---
Admission Date: 04/15/18 Discharge Date: 04/19/18 Primary Care Provider: None Disposition: ROUTINE DISCHARGE Discharge Condition: GOOD Reason for Admission: Right Knee Cellulitis possible Abscess Consultations: General Surgery Orthopedics - Problems (1) Cellulitis of right knee Onset Date: 04/15/18 Current Visit: Yes Status: Acute (2) Cellulitis of right leg Onset Date: 04/15/18 Current Visit: Yes Status: Acute (3) Tobacco abuse Onset Date: 04/15/18 Current Visit: Yes Status: Chronic (4) Marijuana use Onset Date: 04/15/18 Current Visit: Yes Status: Chronic Brief History of Present Illness: 37 y/o M who recently was realized from residential on mar 25 2018 presenting to the ED with Knee swelling and Right Lower Leg Cellulitis. Pt noted that this started about 3 days ago as a boil and now has got progressively worse. Pt states he also noted similar episode on the elbow that started today. Pt states he has had similar episode in the armpit region in the past but did not get anything done. Denies any trauma to the area. Positive for subjective fever, Chills and pain. Able to Ambulate and put weight on the affected extremity. + for cig smoking and THC. Occasional Alcohol and negative for IV drugs. In the ER pt was found to have RLE cellulitis and Right knee Swelling with Possible Abscess vs septic arthritis. Pt was thus admitted to the hospital for further workup and IV abx given the extent of cellulites and High risk for Septic Arthritis. Hospital Course: Overall during the hospital stay patient remained stable Patient was initially admitted to the hospital for right lower extremity cellulitis and right knee abscess. Initially the concern were septic arthritis was high. Patient thus had MRI done which was negative for septic arthritis. General surgery was then consulted who did an incision and drainage in the OR. Patient recovered well. Wound culture was positive for MRSA. Given the proximity of the abscess to the joint it was decided that patient can have IV antibiotics for 2 weeks. IV vancomycin was set up for the patient to be given here at the hospital. Patient is to come back to the ER on told the outpatient surgery opens about the holiday. Patient will be receiving vanc 2.75 g daily for his MRSA infection. Patient will have vanc trough before the 3rd dose. If the vanc trough is elevated the next dose can be held. If the vanc trough is low then patient can have increases his vanc levels. Patient is also to get BMP at q. 7 days. Both of which will be followed up by Dr. early. Patient then was discharged home under stable condition Vital Signs/Physical Exam: Temp Pulse Resp BP Pulse Ox 98.0 F 84 17 128/82 96 04/19/18 12:00 04/19/18 12:00 04/19/18 12:00 04/19/18 12:00 04/19/18 12:00 General: Alert, In no apparent distress HEENT: Atraumatic, PERRLA, EOMI Neck: Supple, JVD not distended Respiratory: Clear to auscultation bilaterally, Normal air movement Cardiovascular: Regular rate/rhythm, Normal S1 S2 Gastrointestinal: Normal bowel sounds, No tenderness Musculoskeletal: No tenderness Integumentary: No rashes Neurological: Normal speech, Normal tone, Normal affect Lymphatics: No axilla or inguinal lymphadenopathy Laboratory Data at Discharge: WBC 5.2 K/uL (4.3-10.9) D 04/17/18 05:13 Hgb 13.0 g/dL (13.6-17.9) L 04/17/18 05:13 Hct 37.1 % (39.6-49.0) L 04/17/18 05:13 Plt Count 315 K/uL (152-406) 04/17/18 05:13 PT 13.0 SECONDS (9.5-12.5) H 04/14/18 12:45 INR 1.10 04/14/18 12:45 APTT 33.3 SECONDS (24.3-36.9) 04/14/18 12:45 Sodium 140 mmol/L (136-145) 04/18/18 03:33 Potassium 3.3 mmol/L (3.5-5.1) L 04/18/18 03:33 BUN 9 mg/dL (7-18) 04/18/18 03:33 Creatinine 0.91 mg/dL (0.55-1.3) 04/18/18 03:33 Glucose 89 mg/dL (74-106) 04/18/18 03:33 Phosphorus 4.1 mg/dL (2.5-4.9) 04/18/18 03:33 Magnesium 1.9 mg/dL (1.8-2.4) 04/18/18 03:33 Total Bilirubin 0.2 mg/dL (0.2-1.0) 04/17/18 05:13 AST 40 U/L (15-37) H 04/17/18 05:13 ALT 57 U/L (12-78) 04/17/18 05:13 Alkaline Phosphatase 79 U/L (45-117) 04/17/18 05:13 Home Medications: Vancomycin HCl in 5 % Dextrose [Vancomycin 2 Gram/500 ml-D5w] 2.75 gm IV DAILY # 10 plast..bag 04/19/18 New Medications: Vancomycin HCl in 5 % Dextrose [Vancomycin 2 Gram/500 ml-D5w] 2.75 gm IV DAILY # 10 plast..bag Patient Discharge Instructions: Please f/u at wound healing center in one week with Dr Kumar. Dressing Change instructions: Wet to dry NS to right knee wound daily. New medication Diet: Regular Activity: Ad elmer Followup: Eric Early MD [ACTIVE - CAN ADMIT] - 1 Week Abram Kumar MD [ACTIVE - CAN ADMIT] - 2-3 Days
== END 2018-04-19 15:25 | disposition home or self-care (01) | DRG 581 ==
LOC: ER 10:29 → ERHOLD 14:58 → 4TH 16:16 → OBSVTOIN 04-15 17:53
PROVIDERS: ADMIT Family Medicine; ATTEND Family Medicine
PROC: 0J9N0ZZ Drainage of Right Lower Leg Subcutaneous Tissue and Fascia, Open Approach (ICD-10-PCS; principal; 2018-04-15 13:30)
PROC: 02HV33Z Insertion of Infusion Device into Superior Vena Cava, Percutaneous Approach (ICD-10-PCS; 2018-04-17)
DX: L03.115 Cellulitis of right lower limb (principal); F17.210 Nicotine dependence, cigarettes, uncomplicated; F12.10 Cannabis abuse, uncomplicated; L02.415 Cutaneous abscess of right lower limb; B95.62 Methicillin resistant Staphylococcus aureus infection as the cause of diseases classified elsewhere
CPT/HCPCS: 36415; 71045; 80048; 80053; 80076; 80202; 83605; 83735; 84100; 84132; 84145; 85025; 85610; 85730; 86140; 87040; 87070; 87075; 87077; 87186; 87205; 87389; 88304; 93971; 96361; 96374; 99285; G0378; J2250; J2543; J2704; J3010; J7030